=== PATIENT | female | born 1960 | race Asian ===

== ENCOUNTER → 2018-01-24 | Outpatient (REF) | payer MEDICAID, OTHER | LOC: M SFHCLERA 18:26 | DX: L97.511 Non-pressure chronic ulcer of other part of right foot limited to breakdown of skin (principal) | CPT/HCPCS: 87186 ==

== ENCOUNTER → 2018-02-12 | Outpatient (CLI) | payer MEDICAID | LOC: M RAD 11:23 | DX: Z12.31 Encounter for screening mammogram for malignant neoplasm of breast (principal) | CPT/HCPCS: 77067 ==

== ENCOUNTER 2018-04-03 09:08 | Day surgery (SDC) | payer MEDICAID ==
[2018-04-03] MEDS: NS 1,000 ML IV (09:33)
[2018-04-03] MEDS ORDERED: PROPOFOL 200 MG/20 ML VIAL As Ordered ×4 (09:55→09:58)
[2018-04-03] MEDS ORDERED: fentaNYL 100 MCG/2 ML INJECTION (J3010) As Ordered (10:05)
[2018-04-03] MEDS ORDERED: LIDOCAINE 2% INJ 100 MG/5 ML SDV (FOR ANES.) As Ordered (10:05)
== END 2018-04-03 11:59 | disposition home or self-care (01) ==
LOC: M OPP 09:08
DX: Z12.11 Encounter for screening for malignant neoplasm of colon (principal); Z64.0 Problems related to unwanted pregnancy; K22.8 Other specified diseases of esophagus; R12 Heartburn; I10 Essential (primary) hypertension; E78.00 Pure hypercholesterolemia, unspecified; E03.9 Hypothyroidism, unspecified; F32.9 Major depressive disorder, single episode, unspecified; F41.9 Anxiety disorder, unspecified; E11.9 Type 2 diabetes mellitus without complications; M12.9 Arthropathy, unspecified; R06.83 Snoring; F17.210 Nicotine dependence, cigarettes, uncomplicated; Z79.82 Long term (current) use of aspirin; Z79.84 Long term (current) use of oral hypoglycemic drugs; Z79.899 Other long term (current) drug therapy; Z88.8 Allergy status to other drugs, medicaments and biological substances; Z90.710 Acquired absence of both cervix and uterus
CPT/HCPCS: 45378